=== PATIENT | male | born 1990 | race Two or more races ===

== ENCOUNTER 2021-06-27 08:48 | Outpatient (REF) | payer BC, SELFPAY ==
[2021-06-27 09:10] LABS: MANUAL DIFF FLAG NO
[2021-06-27 09:23] LABS: Basophils Absolute Auto 0.1 X10*3/uL (0.0-0.2); Basophils Percent Auto 0.6 % (0-2); Eosinophils Absolute Auto 0.1 X10*3/uL (0.0-0.4); Eosinophils Percent Auto 1.7 % (0-4); Hematocrit 49.5 % (42.0-52.0); Hemoglobin 16.5 g/dl (14.0-18.0); Imm Gran Abs Auto 0.03 X10*3/uL (0.00-0.03); Imm Gran Pct Auto 0.4 % (0.0-0.4); Mean Corpuscular HGB Conc 33.3 g/dl (31.0-36.0); Mean Corpuscular Hemoglobin 28.4 pg (27.0-33.0); Mean Corpuscular Volume 85.3 fL (80.0-98.0); Mean Platelet Volume 10.1 fL (9.4-12.4); Monocytes Absolute Auto 0.8 X10*3/uL (0.1-1.2); Monocytes Percent Auto 9.6 % (2-11); Neutrophils Absolute Auto 4.2 x10*3/uL (2.0-8.3); Neutrophils Percent Auto 51.7 % (45-73); Platelet Count 360 X10*3/uL (160-400); Red Cell Distribution Width 12.5 % (11.0-16.0); White Blood Count 8.2 X10*3/uL (4.8-10.8)
[2021-06-27 09:38] LABS: Alanine Aminotransferase 40 U/L (0-40); Albumin Level 4.4 g/dL (3.5-5.0); Alkaline Phosphatase 73 U/L (39-117); Anion Gap 10 (12-20); Aspartate Amino Transferase 26 U/L (5-37); Bilirubin Total 1.8 mg/dL (0.0-1.0); Blood Urea Nitrogen 14 mg/dL (9-16); Calcium 9.7 mg/dL (8.4-10.2); Carbon Dioxide 27 mmol/L (22-29); Chloride 105 mmol/L (96-108); Cholesterol 213 mg/dL; Estimated Glomerular Filt Rate > 60; Glucose Random 96 mg/dL (60-115); HDL Cholesterol 35 mg/dL; LDL Cholesterol Calculated 154 mg/dl; Potassium 4.6 mmol/L (3.3-5.1); Sodium 137 mmol/L (135-145); Total Protein 7.4 g/dL (6.5-8.0); Triglycerides 121 mg/dL
[2021-06-27 09:59] LABS: Thyroid Stimulating Hormone 1.78 uIU/mL (0.32-4.0)
== END 2021-06-27 08:49 | disposition home or self-care (01) ==
LOC: HO.LAB 08:48
PROVIDERS: PCP Internal Medicine; Visit Provider Internal Medicine
DX: Z00.00 Encounter for general adult medical examination without abnormal findings (principal); E66.9 Obesity, unspecified; H93.8X9 Other specified disorders of ear, unspecified ear; M77.11 Lateral epicondylitis, right elbow; I10 Essential (primary) hypertension
CPT/HCPCS: 36415; 80053; 80061; 84443; 85025

== ENCOUNTER 2021-12-01 10:33 | Emergency (ER) | payer BC, SELFPAY ==
--- NOTE | ~2021-12-01 | XR_ITS ---
EXAMINATION: XR TIBIA AND FIBULA, LEFT CLINICAL INFORMATION: Pain COMPARISON: None TECHNIQUE: AP and lateral views of the left tibia and fibula were obtained. FINDINGS: There are postoperative changes from ACL repair. No acute fracture or dislocation. Well-corticated soft tissue ossification inferior to the lateral malleolus. Normal soft tissues tissues. XR/XR tibia fibula LT 2V IMPRESSION: Evidence of old ACL repair. No acute findings.
[2021-12-01 11:11] VITALS: BP 140/78; PULSE 98; RESP 18; TEMP 37.2; O2SAT 97; BMI 30.8
--- NOTE | 2021-12-01 13:53 | ED.LOWEXIN ---
HPI - Extremity Injury (Lower) General Chief Complaint: Extremity Injury, Lower Stated Complaint: L Knee Injury 3 Weeks Ago Time Seen by Provider: 12/01/21 13:45 Source: patient Mode of arrival: ambulatory Limitations: no limitations History of Present Illness HPI Narrative: Patient is an otherwise healthy 31-year-old male who presents to the ED today for left lower leg injury. He states that 3 weeks ago he was playing softball when a line drive hit him directly in the left jones and developed significant bruising and swelling where he was hit shortly after. The bruising has since subsided however patient now has a large painful, erythematous mass over the area of initial injury and pain that radiates down into the medial aspect of his foot. He denies any drainage from the mass, spouse states that the mass feels warm. He is able to bear weight on the affected extremity without any pain. He denies any fevers, chills, myalgias, numbness/tingling, paresthesias, calf pain, other lesions/masses, other injuries, previous injury to affected extremity. Tetanus UTD per pt. complaint: leg injury (L anterior tib/fib) Onset (ago): week(s) (3) Type of Injury: blunt Place: street/outdoors Severity: moderate Relieving factors: nothing Exacerbating factors: nothing Context: direct blow Associated symptoms: swelling Other symptoms: none Related Data Previous Rx's Medication Instructions Recorded cephalexin 500 mg capsule 500 mg PO Q6H 10 days #40 caps 12/01/21 doxycycline monohydrate 100 mg 100 mg PO BID 10 days #20 tabs 12/01/21 tablet naproxen 500 mg tablet 500 mg PO BID PRN pain #14 tabs 12/01/21 Allergies Allergy/AdvReac Type Severity Reaction Status Date / Time No Known Allergies Allergy Unverified 10/25/19 18:35 Review of Systems Review of Systems: Constitutional : No Weight loss, No Fever, No Chills, No Night Sweats, No Fatigue, No Malaise ENT/Mouth : No Hearing loss, No Ear Pain, No Nasal Congestion, No Sinus Pain, No Hoarseness, No sore throat, No Rhinorrhea, No Swallowing Difficulty Eyes: No Eye Pain, No Swelling, No Redness, No Foreign Body, No Discharge, No Vision Changes Cardiovascular : No Chest Pain, No SOB, No Dyspnea on Exertion, No Orthopnea, No Edema, No Palpitations Respiratory : No Cough, No Sputum, No Wheezing, No Smoke Exposure, No Dyspnea Gastrointestinal : No Nausea, No Vomiting, No Diarrhea, No Constipation, No abdominal Pain, No Hematochezia, No Melena Genitourinary : no irregular bleeding, No Dysuria, No Urinary Frequency, No Hematuria, No Urinary Incontinence, No Urgency, No Flank Pain, No Urinary Flow Changes, No Hesitancy Musculoskeletal : +mass on LLE. No joint pain, No Myalgias, No Joint Swelling Skin : No Skin Lesions, No rash Neuro : No Weakness, No Numbness, No Paresthesias, No Loss of Consciousness, No Dizziness, No Headache Psych : No Anxiety/Panic, No Depression, No SI/HI/AH/VH, No Social Issues, Heme/Lymph: No Bruising, No Bleeding,No Lymphadenopathy Endocrine : No Polyuria, No Polydipsia, No Temperature Intolerance Yes all other systems are reviewed and are negative [facility] Past Medical History Attestation statement: The following information was validated with the patient. Source: old records reviewed, obtained from family and nursing notes reviewed Social History Social History Advance Directives: No Physical Exam Vital Signs: Vital Signs: Last Vital Signs Temp 98.9 F 12/01/21 11:11 Pulse 98 12/01/21 11:11 Resp 18 12/01/21 11:11 BP 140/78 H 12/01/21 11:11 Pulse Ox 97 12/01/21 11:11 O2 Del Method 12/01/21 11:11 BMI result Body Mass Index 30.8 vital signs have been reviewed as normal and appeared to be correct. Blood pressure normal. Heart rate normal. Respiration rate normal. Temperature normal. Oxygen saturation normal. Appearance: Alert. Oriented X3. No acute distress. Head: Normal external exam. Normocephalic. Atraumatic. Eyes: PERRLA. EOMI. Conjunctiva and sclera normal. Eyelids normal. ENT: Normal voice. No trismus noted. No drooling noted. No muffled voice noted. Neck: Normal inspection. Neck supple. No tracheal deviation noted. No signs of trauma noted. Respiratory: No respiratory distress. Painless inspiration. No accessory muscle usage noted or decreased air movement noted. No signs of trauma. Abdomen: Nondistended. No obvious deformity. Skin: Skin warm and dry. Normal skin color. Normal skin turgor. No rashes/lesions/lacerations noted. Extremities: 4cm erythematous, warm, fluctuant mass noted on the anterior aspect of the L jones. No lower extremity edema. No calf tenderness is noted. Extremities exhibit normal range of motion and nontender. Neuro: Oriented X 3. No motor deficit. No sensory deficit. Normal steady gait. No focal neuro deficits noted. CN's II-XII intact bilaterally? Vascular: + radial pulses/+ 2 distal pedal pulses/+2 dorsalis pedis b/l. Course Course Course Narrative: 14:00 Patient is an otherwise healthy 31-year-old male who presents to the ED today for left lower leg injury. He states that 3 weeks ago he was playing softball when a line drive hit him directly in the left jones and developed significant bruising and swelling where he was hit shortly after. The bruising has since subsided however patient now has a large painful, erythematous mass over the area of initial injury and pain that radiates down into the medial aspect of his foot. He denies any drainage from the mass, spouse states that the mass feels warm. He is able to bear weight on the affected extremity without any pain. He denies any fevers, chills, myalgias, numbness/tingling, paresthesias, calf pain, other lesions/masses, and other injuries. Tetanus UTD per pt. VSS. A 4cm erythematous, warm, fluctuant mass noted on the anterior aspect of the L jones. X-ray of the L tibia/fibula reveal old findings of ACL repair, no acute bony abnormalities or fractures. No streaking noted. Plan: I&D of mass and re-evaluate pending findings. Reevaluation(s) Reevaluation #1: I&D of abscess performed. Local anesthesia was used and an incision was made into the abscess. 20cc of dark red blood with several clots were drained from the abscess. A pressure dressing was then applied. Plan to discharge home with abx coverage for overlying cellulitis with Doxy and Keflex. Time: 14:53 MDM - Extremity Injury (Lower) Medical Records Attestation: I reviewed the patient's medical records. Lab Data Attestation: I reviewed the patient's lab results. Imaging Data left tibia/fib xray: Attestation: I personally reviewed and interpreted this imaging study as follows: Radiologist's impression: FINDINGS: There are postoperative changes from ACL repair. No acute fracture or dislocation. Well-corticated soft tissue ossification inferior to the lateral malleolus. Normal soft tissues tissues. XR/XR tibia fibula LT 2V IMPRESSION: Evidence of old ACL repair. No acute findings. Procedures Abscess I/D Site: lower extremity (Anterior jones) Side (if applicable): left Sedation/analgesia: none Local Anesthetic: lidocaine 2% Amount of anesthesia used (mL): 3 Technique: incised with blade Amount of fluid expressed (mL): 20 Sent for culture/gram staining?: No Irrigation: Yes Packing used?: none Complications: other (no complications, patient tolerated procedure well) Discharge Plan Discharge Clinical Impression: Hematoma of left lower leg, Cellulitis Patient Disposition: Home, Self-Care Instructions: Cellulitis (ED), Contusion in Adults (ED), Hematoma (ED) Prescriptions: New cephalexin 500 mg capsule 500 mg PO Q6H 10 Days Qty: 40 0RF doxycycline monohydrate 100 mg tablet 100 mg PO BID 10 Days Qty: 20 0RF naproxen 500 mg tablet 500 mg PO BID PRN (Reason: pain) Qty: 14 0RF Referrals: Julia Barros MD [Primary Care Provider] - 2 days Interventions: ED Discharge Assessment Last Done: 12/01/21 15:13 Discharge Date/Time: 12/01/21 15:15 Print Language: Sami
[2021-12-01] MEDS: Lidocaine HCl 1 % MPF 5 ML VIAL SUBCUT (15:00)
== END 2021-12-01 15:15 | disposition home or self-care (01) ==
PROVIDERS: Emergency Provider Emergency Medicine Emergency Medical Services; PCP Internal Medicine
DX: S80.02XA Contusion of left knee, initial encounter (principal); L03.116 Cellulitis of left lower limb; Y29.XXXA Contact with blunt object, undetermined intent, initial encounter; Y93.64 Activity, baseball; Y92.320 Baseball field as the place of occurrence of the external cause; Y99.9 Unspecified external cause status
CPT/HCPCS: 10140; 73590; 99283; 99284

== ENCOUNTER 2023-04-12 07:24 | Outpatient (REF) | payer OTHER, SELFPAY ==
[2023-04-12 07:38] LABS: MANUAL DIFF FLAG NO
[2023-04-12 07:52] LABS: Basophils Absolute Auto 0.1 X10*3/uL (0.0-0.2); Basophils Percent Auto 0.9 % (0-2); Eosinophils Absolute Auto 0.2 X10*3/uL (0.0-0.4); Eosinophils Percent Auto 1.7 % (0-4); Hematocrit 50.6 % (42.0-52.0); Hemoglobin 16.9 g/dl (14.0-18.0); Imm Gran Abs Auto 0.03 X10*3/uL (0.00-0.03); Imm Gran Pct Auto 0.3 % (0.0-0.4); Lymphocytes Absolute Auto 3.6 X10*3/uL (1.2-4.9); Lymphocytes Percent Auto 41.2 % (20-40); Mean Corpuscular HGB Conc 33.4 g/dl (31.0-36.0); Mean Corpuscular Hemoglobin 28.8 pg (27.0-33.0); Mean Corpuscular Volume 86.3 fL (80.0-98.0); Monocytes Absolute Auto 0.8 X10*3/uL (0.1-1.2); Monocytes Percent Auto 8.5 % (2-11); Neutrophils Absolute Auto 4.2 x10*3/uL (2.0-8.3); Neutrophils Percent Auto 47.4 % (45-73); Platelet Count 331 X10*3/uL (160-400); Red Blood Count 5.86 X10*6/uL (4.60-5.80); Red Cell Distribution Width 12.6 % (11.0-16.0); White Blood Count 8.8 X10*3/uL (4.8-10.8)
[2023-04-12 08:10] LABS: Alanine Aminotransferase 34 U/L (0-40); Albumin Level 4.4 g/dL (3.5-5.0); Alkaline Phosphatase 72 U/L (39-117); Anion Gap 11 (12-20); Aspartate Amino Transferase 21 U/L (5-37); Bilirubin Total 1.2 mg/dL (0.0-1.0); Blood Urea Nitrogen 14 mg/dL (9-16); Carbon Dioxide 27 mmol/L (22-29); Chloride 106 mmol/L (96-108); Cholesterol 209 mg/dL (<200); Estimated Glomerular Filt Rate > 60; Glucose Random 94 mg/dL (60-115); HDL Cholesterol 35 mg/dL (>40); LDL Cholesterol Calculated 122 mg/dL (<100); Sodium 140 mmol/L (135-145); Total Protein 7.6 g/dL (6.5-8.0); Triglycerides 264 mg/dL (<150)
== END 2023-04-12 07:25 | disposition home or self-care (01) ==
LOC: HO.LAB 07:24
PROVIDERS: PCP Internal Medicine; Visit Provider Internal Medicine
DX: E78.00 Pure hypercholesterolemia, unspecified (principal); I10 Essential (primary) hypertension
CPT/HCPCS: 36415; 80053; 80061; 85025

== ENCOUNTER 2023-05-03 12:20 | Outpatient (REF) | payer OTHER, SELFPAY | END 2023-05-03 12:21 | disposition home or self-care (01) | LOC: HO.LAB 12:20 | PROVIDERS: PCP Internal Medicine; Visit Provider Internal Medicine | DX: Z13.89 Encounter for screening for other disorder (principal) ==